=== PATIENT | female | born 1960 | race Caucasian/White ===

== ENCOUNTER 2022-10-16 19:30 | Emergency (ER) | payer OTHER, SELFPAY ==
--- NOTE | 2022-10-16 19:31 | ED.EYEPROB ---
HPI - Eye Problem General Chief complaint: Eye Problems Stated complaint: Rt Eye Irritation Time Seen by Provider: 10/16/22 19:31 Source: patient Mode of arrival: ambulatory Limitations: no limitations History of Present Illness HPI Narrative: Shu is a 61-year-old female patient presenting to the clinic today with complaints of right eye irritation that occurred prior to arrival. She reports she was cleaning a picture frame and the picture frame broke and glass when on her face. She was concerned that she may have gotten some glass in her right eye. She denies any pain, photosensitivity, drainage, or visual changes. Related Data Home Medications Medication Instructions Recorded Confirmed No Home Medications 10/16/22 10/16/22 Allergies Allergy/AdvReac Type Severity Reaction Status Date / Time sulfabenzamide Allergy Severe Swelling Verified 10/16/22 19:31 of Lip/Tongue/Throat sulfamethoxazole Allergy Severe Swelling Verified 10/16/22 19:31 [From Bactrim] of Lip/Tongue/Throat trimethoprim [From Bactrim] Allergy Severe Swelling Verified 10/16/22 19:31 of Lip/Tongue/Throat ciprofloxacin [From Cipro] AdvReac Intermediate Cramping Verified 10/16/22 19:31 of the Muscles penicillin AdvReac Mild Hives Uncoded 10/16/22 19:31 Review of Systems Review of Systems: Pertinent positives per HPI. Patient denies any fever, chills, rash, headache, visual changes, dizziness, cough, runny nose, sore throat, shortness of breath, chest pain, palpitations, nausea, vomiting, diarrhea, constipation, abdominal pain, or any urinary issues. PMFSH Social History Social History Smoking status: Unknown if ever smoked Alcohol intake: never Substance use: never Substance use type: does not use Living arrangements: with family Occupation/Education: occupation Gender identity (if verbalized by the patient): Female Sexual Orientation (if Verbalized by the Patient): Straight or Heterosexual Comments At the time of my signature, I reviewed and agree with the nursing past medical, surgical, social, and family history. There is no relevant family history pertinent to the patient complaint. Exam Narrative: General: Well-developed, well nourished, in no apparent distress Head: Normocephalic, atraumatic Eyes: Pupils equally round and reactive to light bilaterally, EOM intact, left sclera and conjunctive clear, mild injection of sclera and conjunctiva, no discharge, lids normal, Wood's lamp exam was performed and was no sign of corneal abrasion. No obvious foreign body or cut/trauma noted to her right eye Ears: TMs intact and clear, ear canals clear, no drainage, grossly hearing normal. Nose: Nares patent, no discharge, no inflammation, no sinus tenderness. Mouth: Oropharynx without lesions or masses, good dentition, MMM. Neck: Supple, trachea midline, no enlargement of anterior or posterior cervical nodes, no thyroid masses or goiter palpable. Cardio: Regular rate and rhythm, s1 and s2 normal, no murmur appreciated. Resp: Clear to auscultation bilaterally anteriorly and posteriorly, no rhonchi, rales, wheezing or rubs Course Course Emergency Course: Portions of this record may have been created with voice recognition software. Level of Care: Express Care Visit Vital Signs Vital signs: Vital signs reviewed Procedures Other Procedure Procedure 1: Other Procedure: Topical anesthetic tetracaine was instilled with good anesthesia using 2gtt in to the right eye. Fluorescein stain of the right eye was performed without uptake of dye. No epithelial defect was noted. NO FB, ulcer or dendritic lesions. Upper lid was everted and no FB or lesions were noted. NO Amber sign. Normal saline irrigation eye solution was performed and the patient tolerated the procedure well, no adverse reaction or complications. No obvio
[2022-10-16 19:40] VITALS: BP 147/84; PULSE 95; RESP 16; TEMP 37.3; O2SAT 98
== END 2022-10-16 20:04 | disposition home or self-care (01) ==
PROVIDERS: Emergency Provider Nurse Practitioner Family; PCP Physician Assistant Medical
DX: H57.11 Ocular pain, right eye (principal)
CPT/HCPCS: 99213; A9270; G0463